=== PATIENT | female | born 1995 | race Caucasian/White ===

== ENCOUNTER 2019-07-19 23:55 | Emergency (ER) | payer OTHER ==
[~2019-07-19] VITALS: Ht 162.6 cm; Wt 52.7 kg
[2019-07-20] MEDS ORDERED: LIDOCAINE HCL/PF 1% 10 MG/ML 5ML VIAL IJ ONE (01:00)
[2019-07-20] MEDS ORDERED: BACITRACIN ZINC OINT UDPKT TOP ONE (01:00)
[2019-07-20 02:59] VITALS: BP 117/64
== END 2019-07-20 03:00 | disposition home or self-care (01) ==
LOC: ER 23:55
DX: S01.81XA Laceration without foreign body of other part of head, initial encounter (principal); Z88.3 Allergy status to other anti-infective agents; W22.8XXA Striking against or struck by other objects, initial encounter; Y93.89 Activity, other specified; Y92.018 Other place in single-family (private) house as the place of occurrence of the external cause
CPT/HCPCS: 12011; 99283; J3490